=== PATIENT | female | born 1995 | race Caucasian/White ===

== ENCOUNTER 2019-07-02 15:19 | Emergency (ER) | payer OTHER ==
[~2019-07-02] VITALS: Ht 170.2 cm; Wt 106.6 kg
[2019-07-02] MEDS ORDERED: CYCLOBENZAPRINE5 MG PO (17:24)
[2019-07-02] MEDS ORDERED: MEDROLDOSEPACK PO (17:24)
[2019-07-02] MEDS ORDERED: NORCO 5-325 TA1 EAC1 PO (17:24)
[2019-07-02 17:31] VITALS: BP 118/63
== END 2019-07-02 17:31 | disposition home or self-care (01) ==
LOC: ER 15:19
DX: M51.06 Intervertebral disc disorders with myelopathy, lumbar region (principal); Z90.49 Acquired absence of other specified parts of digestive tract; Z98.890 Other specified postprocedural states; Z88.0 Allergy status to penicillin